=== PATIENT | male | born 1955 | race Caucasian/White ===

== ENCOUNTER → 2017-08-12 | Outpatient (CLI) | payer OTHER ==
[~2017-08-12] MED LIST: ALBUTEROL2.5 MG/31 INH; ALPRAZOLAM 0.0.25 M1 PO; ALPRAZOLAM 0.0.25 MG PO; ALPRAZOLAM 0.50.5 M1 PO; AMBIEN 10 MG TA10 MG PO; AMBIEN PO; AMITRIPTYLINE H50 M2 PO; AMITRIPTYLINE H50 M3 PO; ANDROGEL75 GM TOP; APAP650; APAP650 PO; ARICEPT 5 MG TAB5 MG PO; ASPIRIN300 MG PO; BENADRYL25 MG PO; CELEXA20 MG PO; CELEXA40 MG PO; CITALOPRAM PO; CLARITIN PO; COLACE 100 MG100 MG PO; COLACE100 MG PO; CYMBALTA30 MG PO; CYMBALTA60 MG PO; DESYREL50 MG PO; FISH OIL 1,0001 EAC5 PO; FISH OIL 1,001000 MG PO; FISHOIL PO; GLUCOPHAGE850 MG PO; HUMALOG100 UNIT/1 SC; HUMALOG100 UNIT/1 SUBQ; HUMULINR100 SUBQ; HYDROCODON-ACE1 EAC5 PO; HYDROCODONE-AP1 EAC6 PO; LANTUS SC; LANTUS SUBQ; LEVEMIR SUBQ; LEVOTHROID100 MC1 PO; LEVOTHROID125 MCG PO; LEVOTHYROXIN0.125 M1 PO; LEVOTHYROXIN0.175 MG PO; LIDODERM 5%1 PATCH TOP; LOVAZA1000 MG PO; LYRICA 75 MG CA75 MG PO; LYRICA150 MG PO; MECLIZINE HCL25 M1 PO; MOBIC15 MG PO; NASACORT NS; NEURONTIN 300M300 M2 PO; NEURONTIN600 MG PO; NORCO 10-325 T1 EACH PO; NORCO 5-325 TA1 EAC1 PO; NORVASC 5 MG TAB5 MG PO; OMEPRAZOLE PO; OMEPRAZOLE20 M2 PO; OXYBUTYNIN CHLOR5 M1 PO; OXYCODON-ACETA1 EAC1 PO; OXYCODONE HCL 55 MG PO; OXYCODONE HCL5 M1; OXYCODONE-ACET1 EAC2 PO; OXYCONTIN10 M1 PO; OXYCONTIN20 M1 PO; OXYCONTIN30 MG PO; OXYCONTIN40 MG PO; PERCOCET 10-321 EACH PO; PREDNISONE 5 MG5 M1 PO; PRILOSEC 10MG C10 MG PO; PRILOSEC PO; PRILOSEC40 MG PO; SENNA PO; SENOKOT TO GO8.6 MG PO; SENOKOT8.6 MG PO; SINGULAIR 10 MG10 M1 PO; SPIRIVA INH; SYMBICORT160 MCG/4. INH; SYNTHROID150 MCG PO; TOPAMAX 25 MG T25 M1; TOPAMAX 25 MG T25 M1 PO; TOPAMAX50 MG PO; TRAZODONE HCL50 MG PO; VENTOLIN HFA INH8 GM INH; VICODIN PO; VOLTAREN GEL 1100 G2 TOP; ZESTRIL10 MG PO; ZESTRIL40 MG PO; ZIPSOR25 MG PO; ZOCOR40 MG PO; albuterol neb INH; citalopram PO; trazodone PO; ventolin
--- NOTE | 2017-08-27 09:02 | PAINCON ---
[address] [address] PAIN MANAGEMENT CONSULTATION Name: DEBRA REHMAN Room: [facility].#: [id number] Admission: 08/12/17 Attend Phys: Michael Rodriguez DO Discharge: Date of : 53 Report #: [id number] THIS REPORT FOR: //name// CC: Say Alvares DATE OF SERVICE: 08/12/2017 REFERRING PHYSICIAN: Say Charles DO CHIEF COMPLAINT: Low back pain, bilateral lower extremity pain and paresthesias, chronic neck pain. HISTORY OF PRESENT ILLNESS: As you know, the patient is a 62-year-old male, returning in followup visit requesting refill on medications. The patient states overall medications are working fairly well. He is placing pain score approximately 7/10 despite a 70% improvement in symptoms reported with medication management. The patient comes today with increasing depression, worsening of mentation and worsening of his underlying Alzheimer's disease. He states he has also become quite emotionally labile with the changes in his memory and emotional status. Overall, the patient thinks medications are working beneficially at this time, does not require interventional treatments, he is requesting 3 months' worth of therapy to assist of pain that is exacerbated with walking, sitting, standing, climbing stairs, lifting and bending. ALLERGIES: MORPHINE and TETRACYCLINE. CURRENT MEDICATIONS: Alprazolam, Norvasc, docusate sodium, Aricept, Cymbalta, Neurontin, Levemir, Humulin, Synthroid, Antivert, oxycodone, Senokot, simvastatin, and trazodone. SOCIAL HISTORY: The patient denies tobacco, alcohol, IV or illicit drug use. He is retired, retired years ago, unaccompanied today. IMAGING: No new imaging available. PHYSICAL EXAMINATION: VITAL SIGNS: Blood pressure 175/78, pulse is 114, respiratory rate 18, 98% on room air, current temperature 97.9 degrees Fahrenheit, height 5 feet 9 inches tall, and weight 270 pounds. GENERAL: Well-developed, well-nourished, well-hydrated, morbidly obese 62-year-old male, appearing his stated age, he is placing pain score today 7/10. HEENT: Normocephalic, atraumatic. Pupils are equal, round, and reactive to light. Extraocular muscles are intact. Sclerae [place]ter[place] [address] PAIN MANAGEMENT CONSULTATION Name: DEBRA REHMAN Room: [facility]#: [id number] Admission: 08/12/17 Attend Phys: Michael Rodriguez DO Discharge: Date of : 53 Report #: [id number] Affect is flat. EXTREMITIES: Show no clubbing, no cyanosis, and no edema. MUSCULOSKELETAL: Lower extremity strength is 5/5, intact to light touch from L1 through S2 dermatomes. Seated straight leg raising negative. Supine straight leg raising positive. David's test negative. Modified Gaenslen's positive for axial back pain. Ankle clonus negative. Babinski is negative. ASSESSMENT: 1. Symptomatic lumbar radiculopathy. 2. Displacement of lumbar intervertebral disk with radiculopathy. 3. Lumbosacral spondylosis with radiculopathy. 4. Lumbar degeneration. 5. Chronic intractable pain. PLAN: 1. The patient returns today in followup visit requesting refill on medications. The patient indicates worsening of his underlying Alzheimer's disease process. He states that he is experiencing increasing emotional lability. Unfortunately, the Alzheimer disease processes, the patients tend to become depressed over their loss of memory and this leads to increasing lability. I recommend the patient to follow up with PCP in regards to treatment including the possibility of referral to neurology for assistance from their standpoint. 2. The patient's blood pressure is noted to be quite elevated today 175/78, previous blood pressure 155/73. The patient needs to return to his PCP for adjustments in his antihypertensives. I do not feel that this is a pain related issue as the patient's diastolic pressure is not highly elevated, this appears to be only a systolic dysfunction problem and needs to be treated medically. 3. We have provided refill on the patient's Percocet 10/ one tab p.o. q.5 hours p.r.n. for pain, #120, release dates of today, 4 weeks from today, 8 weeks from today, 3 months' worth of medication. He appears to be doing well with medication, denying any side effects, we will continue the therapy at current dosing. 4. The patient was provided a prescription of duloxetine 30 mg dose 1 tab p.o. q.8 hours, given the patient #90 tablets to take consistently, he will continue this therapy. 5. The patient was provided a prescription of gabapentin 600 mg tablets 2 tabs p.o. t.i.d., #180, 2 refills. We did discuss the possibility of this medication could be contributing to the patient's memory issues, though his memory issues have progressively worsened without the changes in the therapy, he feels this is more related to his underlying Alzheimer's. We can continue to provide this medication assuming neurology does not feel it is contributing to symptom worsening. We will defer to neurology in regards to alterations in this therapy. [facility] [address] [place] [address] PAIN MANAGEMENT CONSULTATION Name: DEBRA REHMAN [id number] Admission: 08/12/17 Attend Phys: Michael Rodriguez DO Discharge: Date of : 53 Report #: [id number] 6. We will see the patient back in followup visit in 3 months for medication therapy. <ELECTRONICALLY SIGNED> By: Michael Rodriguez DO 08/27/17 0902 [id number] Rodriguez DO /nt
== END ==
LOC: M.PC 00:56
DX: M51.16 Intervertebral disc disorders with radiculopathy, lumbar region (principal); M47.27 Other spondylosis with radiculopathy, lumbosacral region; R20.2 Paresthesia of skin; M54.2 Cervicalgia; G89.29 Other chronic pain

== ENCOUNTER → 2017-11-12 | Outpatient (CLI) | payer OTHER ==
[~2017-11-12] MED LIST changes: +ALPRAZOLAM1 MG PO; +ANTIVERT25 MG PO; +CALCIUM 600 +1 EAC1 PO; +FLOMAX0.4 MG PO; +OMEPRAZOLE40 MG PO; +ORPHENADRINE C100 M2 PO; +VITAMIN B-12500 MCG PO; +ZANAFLEX4 MG PO
--- NOTE | 2017-11-13 15:40 | PAINCON ---
[address] [address] PAIN MANAGEMENT CONSULTATION Name: DEBRA REHMAN Room: [facility] Mau#: [id number] Admission: 11/12/17 Attend Phys: Felisha Natarajan MD Discharge: Date of : 53 Report #: [id number] THIS REPORT FOR: //name// CC: Say Collins DATE OF SERVICE: 11/12/2017 FOLLOWUP COMPLAINT: "I need to get a cervical epidural injection. I have concentrated too long on my lower back." FOLLOWUP HISTORY: The patient is a 62-year-old gentleman who has been followed in the pain clinic by Dr. Michael Rodriguez. This is my first visit with him. He has a history of cervical radiculopathy as well as lumbar radiculopathy. He has been treated for lumbar radiculopathy and feels that things are going reasonably well. He has noted some pain and discomfort in the cervical area with pain radiating down into his neck and shoulders. He has had cervical radicular surgery in the past. He has had an anterior approach on the right side. States that his pain is now returning to that which he had experienced in the past. Feels overall that the lower back pain is better, but the upper extremity is more problematic. He also feels that the gabapentin, which he has been taking 600 mg 2 tablets t.i.d. has not been very efficacious. He stopped taking this medication a couple of weeks ago. He would like to try Lyrica. States that his insurance will now cover this. He found it too expensive prior to this juncture in life. The patient states that he will see a surgeon in the near future. He has had 3 falls since his last visit. As you may recall, he suffers from dementia. He feels that it may be getting a bit worse. He is considering seeing another neurologist. Finds that Cymbalta continues to be helpful and would like to have this medication renewed. ALLERGIES: MORPHINE, TETRACYCLINE, ADHESIVE TAPE. MEDICATIONS: Alprazolam 0.25 mg b.i.d., Norvasc 5 mg, Colace 100 mg b.i.d., Aricept 5 mg 2 tablets daily, Cymbalta 30 mg t.i.d., Neurontin 1200 mg t.i.d., insulin 20 units subq at bedtime, Synthroid 0.175 mg daily, Antivert, motion sickness t.i.d. 25 mg, oxycodone 10/325 q.i.d., Senokot 8.6 mg tablets for constipation b.i.d., simvastatin 40 mg, trazodone 50 mg at bedtime. PAST MEDICAL AND SURGICAL HISTORY: Cervical radiculopathy, lumbar radiculopathy, fibromyalgia, cervical spondylosis without myelopathy, headaches, diabetes type 2, GERD, hypertension, insomnia, degenerative arthritis, uvuloplasty, microdiskectomy of the cervical spine, left and right rotator cuff repair, left and right elbow repair, right carpal tunnel release, cholecystectomy, left herniorrhaphy, left knee arthroscopy, right knee arthroscopy, left total knee replacement, renal dysfunction, [place] [address] PAIN MANAGEMENT CONSULTATION Name: DEBRA REHMAN [facility] [id number] Admission: 11/12/17 Attend Phys: Felisha Natarajan MD Discharge: Date of : 53 Report #: [id number] surgery 05/18/2017. SOCIAL HISTORY: He was a marketing communications manager. He is . He is a retired police officer booking. Denies use of tobacco, alcohol or illicit drugs. LABORATORY DATA: Medical records, no new medical/lab available at the time of our interview. X-ray hip view of the pelvis, bilateral dated 10/14/2017, SI joint pain, acute bilateral low back pain with sciatica prominent unspecified. No x-rays for comparison. There is no evidence of acute fracture or malalignment. Mild osteoarthritis in the hip joint and SI joints. Miscellaneous arterial calcification in the pelvis and proximal thigh. X-ray of lumbar spine 10/14/2017, multilevel spondylosis. Grade 1 retrolisthesis of L3/L4 is likely degenerative. No abnormal motion between flexion and extension. Next, chronic L1 compression deformity status post kyphoplasty. FINDINGS: Five [id number] lumbar type vertebral bodies present. The bones, there is a chronic L1 compression fracture status post kyphoplasty. There are no acute compression fractures. Grade 1 retrolisthesis L3 on L4 is likely degenerative. Atherosclerotic calcification of the aorta and iliac arteries. PAIN CLINIC ASSESSMENT: 1. History of osteoarthritis with retrolisthesis of L1 and history of compression fracture at L1. 2. Height 5 feet 9 inches. Weight 279 pounds, BMI is 40. 3. VITAL SIGNS: Blood pressure 151/73, heart rate 112, respiratory rate 16, room air saturation 95%, temperature 98.2. 4. Pain intensity 7/10 with pain in the upper neck area with pain radiating down to the arms, shoulder areas. 5. Fall risk. The patient states he has not fallen in the last 3 months. Does have some dizziness and vertigo, does need some help standing and walking. 6. Blood thinner. The patient is not on a blood thinner. 7. History of hypertension. The patient is being treated for hypertension. 8. Opioid greater than 6 weeks. The patient is on an opioid contract with the pain clinic. 9. Risk assessment tool. 10. Functional assessment tool. 11. Recreational drug use. The patient denies recreational drug use. 12. Tobacco: The patient denies use of tobacco at this juncture. 13. Alcohol. Denies frequent use of alcoholic beverages. PHYSICAL EXAMINATION: GENERAL: The patient is a somewhat obese white male who appears his stated age. Orientation: The patient is alert and oriented x 3. Affect is appropriate, questions were appropriate. Speech is normal. HEENT: Normocephalic, atraumatic. Extraocular eye [place] [address] PAIN MANAGEMENT CONSULTATION Name: ORIDEBRA Room: [facility]#: [id number] Admission: 11/12/17 Attend Phys: Felisha Natarajan MD Discharge: Date of : 53 Report #: [id number] noninjected. Hearing within normal limits. Mucous membranes moist. NECK: Well-healed scar in the right lower neck area. Flexion, extension, left and right lateral rotation, cervical extension and flexion were performed. The patient does note some increased pain and discomfort with pain radiating down into his arm and into the shoulder areas. States that this was similar to what he had been experiencing prior to cervical disk surgery in the neck, some years ago. HEART: Regular rate. ABDOMEN: Protuberant. CHEST: Clear to auscultation without rhonchi or rales. MUSCULOSKELETAL: Without significant scoliosis, kyphosis or lordosis. Upper extremity muscle strength is judged to be 5/5 for the major muscle groups in the upper extremity. The patient complains of pain and discomfort, which radiates down into the deltoid area and forearm of his arm. Lower extremity muscle strength is judged to be 5/5 for the major muscle groups. Light touch in the lower dermatomal areas within normal limits. Muscle bulk is symmetrical. SITA test is negative. Gaenslen's test is positive for axial back pain. Ankle clonus is negative. IMPRESSION: 1. Exacerbation of cervical radiculopathy with pain similar to that which he experienced prior to cervical disk surgery some years ago. 2. Headache. 3. Diabetes type 2. 4. Gastroesophageal reflux disease. 5. Hypertension. 6. Insomnia. 7. Degenerative arthritis. 8. History of lumbar radiculopathy. RECOMMENDATIONS: We discussed treatment options with the patient. Risks and benefits of a cervical epidural steroid injection were discussed. The patient states that he has had numerous injections in the past and gleaned greater than 50% improvement with this. He has had some pain with his back, which has improved with the lumbar epidural steroid injections. He feels that the Lyrica 75 mg b.i.d. was more effective than the gabapentin. The patient stated about 2 weeks ago he stopped taking the gabapentin. He had no seizure activity or no problems with that. At this juncture, he states his insurance has been reestablished and he would be able to afford Lyrica and would like to start this medication again. He would like to continue with the oxycodone. Takes one tablet p.o. q. 4 hours to help with his pain control. He also would like to continue with the Cymbalta. He would like to have this medication renewed. RECOMMENDATIONS: We discussed treatment options with the patient. Risks and benefits of a cervical epidural steroid injection were discussed. They include, but are not limited to infection, increased muscle soreness, headache, bleeding, [facility] [address] [place] [address] PAIN MANAGEMENT CONSULTATION Name: DEBRA REHMAN Room: [facility]#: [id number] Admission: 11/12/17 Attend Phys: Felisha Natarajan MD Discharge: Date of : 53 Report #: [id number] worsening of pain, no improvement in pain and the patient elects to proceed. PROCEDURE NOTE: The patient was taken to the procedure area. He was assisted in getting on the table. He was in the prone position. His neck and back was sterilely prepped with a Betadine solution. This area was then infiltrated with 0.25% bupivacaine. Fluoroscopy was used to identify the C7-T1 interspace. This area was then infiltrated with 0.25% bupivacaine. Total of 80 mg of Depo-Medrol, 40 mg of triamcinolone and 2 mL of 0.25% bupivacaine was injected. The patient tolerated the procedure well. There were no complications. He remained in the pain clinic for an appropriate amount of time. He will follow up in the future as needed. Total of 43 seconds fluoroscopy time was used. We would like to thank you for letting us participate in his care. We hope he continues to improve. <ELECTRONICALLY SIGNED> By: Felisha Natarajan MD 11/13/17 1540 [id number]. Kit Natarajan MD /PMT
== END | disposition home or self-care (01) ==
LOC: M.PC 11-05 10:00
DX: M54.12 Radiculopathy, cervical region (principal); E11.9 Type 2 diabetes mellitus without complications; K21.9 Gastro-esophageal reflux disease without esophagitis; I10 Essential (primary) hypertension; M19.90 Unspecified osteoarthritis, unspecified site; M54.16 Radiculopathy, lumbar region; Z98.890 Other specified postprocedural states; Z68.41 Body mass index [BMI] 40.0-44.9, adult; F11.20 Opioid dependence, uncomplicated

== ENCOUNTER 2017-12-14 17:13 | Emergency (ER) | payer OTHER ==
[~2017-12-14] VITALS: Ht 175.3 cm; Wt 122.5 kg
[~2017-12-14 17:13] MED LIST changes: -ALPRAZOLAM1 MG PO; -ANTIVERT25 MG PO; -ASPIRIN300 MG PO; -CALCIUM 600 +1 EAC1 PO; -FLOMAX0.4 MG PO; -HYDROCODONE-AP1 EAC6 PO; -OMEPRAZOLE40 MG PO; -ORPHENADRINE C100 M2 PO; -VITAMIN B-12500 MCG PO; -VOLTAREN GEL 1100 G2 TOP; -ZANAFLEX4 MG PO
[2017-12-14] MEDS ORDERED: ASPIRIN300 MG PO (17:30)
[2017-12-14] MEDS ORDERED: VOLTAREN GEL 1100 G2 TOP (18:31)
[2017-12-14] MEDS ORDERED: HYDROCODONE-AP1 EAC6 PO (18:31)
[2017-12-14 18:49] VITALS: BP 143/81
[2018-02-04] MEDS ORDERED: VOLTAREN GEL 1100 G2 TOP (08:39)
[2018-02-04] MEDS ORDERED: PERCOCET 10-321 EACH PO (08:39)
[2018-02-04] MEDS ORDERED: HYDROCODONE-AP1 EAC6 PO (08:39)
[2018-02-04] MEDS ORDERED: CYMBALTA30 MG PO (08:39)
[2018-02-04] MEDS ORDERED: LYRICA 75 MG CA75 MG PO (08:39)
[2018-02-04] MEDS ORDERED: OXYCODONE-ACET1 EAC2 PO (08:39)
[2018-02-04] MEDS ORDERED: OXYCONTIN20 M1 PO (09:45)
[2018-02-04] MEDS ORDERED: NEURONTIN600 MG PO (09:48)
[2018-06-24] MEDS ORDERED: PERCOCET 10-321 EACH PO ×2 (08:14→08:32)
[2018-06-24] MEDS ORDERED: NEURONTIN600 MG PO ×2 (08:14→08:32)
[2018-06-24] MEDS ORDERED: OXYCODONE-ACET1 EAC2 PO ×2 (08:14→08:32)
[2018-06-24] MEDS ORDERED: LYRICA 75 MG CA75 MG PO ×2 (08:14→08:32)
[2018-06-24] MEDS ORDERED: VOLTAREN GEL 1100 G2 TOP ×2 (08:14→08:32)
[2018-06-24] MEDS ORDERED: OXYCONTIN20 M1 PO ×2 (08:14→08:32)
[2018-06-24] MEDS ORDERED: CYMBALTA30 MG PO ×2 (08:14→08:32)
[2018-06-24] MEDS ORDERED: ZANAFLEX4 MG PO (09:47)
[2018-06-24] MEDS ORDERED: ORPHENADRINE C100 M2 PO (09:48)
[2018-06-24] MEDS ORDERED: ALPRAZOLAM1 MG PO (09:48)
[2018-06-24] MEDS ORDERED: ANTIVERT25 MG PO (09:49)
[2018-06-24] MEDS ORDERED: OMEPRAZOLE40 MG PO (09:49)
[2018-06-24] MEDS ORDERED: FLOMAX0.4 MG PO (09:50)
[2018-06-24] MEDS ORDERED: VITAMIN B-12500 MCG PO (09:50)
[2018-06-24] MEDS ORDERED: CALCIUM 600 +1 EAC1 PO (09:51)
== END 2017-12-14 18:50 | disposition home or self-care (01) ==
LOC: M.ERS 17:13
DX: S22.41XA Multiple fractures of ribs, right side, initial encounter for closed fracture (principal); K21.9 Gastro-esophageal reflux disease without esophagitis; G47.30 Sleep apnea, unspecified; E11.22 Type 2 diabetes mellitus with diabetic chronic kidney disease; N18.3 Chronic kidney disease, stage 3 (moderate); M79.7 Fibromyalgia; Z90.49 Acquired absence of other specified parts of digestive tract; Z79.4 Long term (current) use of insulin; Z88.6 Allergy status to analgesic agent; Z88.8 Allergy status to other drugs, medicaments and biological substances; W18.39XA Other fall on same level, initial encounter; Y93.89 Activity, other specified; Y92.89 Other specified places as the place of occurrence of the external cause; Y99.8 Other external cause status

== ENCOUNTER → 2018-02-04 | Outpatient (CLI) | payer OTHER ==
[~2018-02-04] MED LIST changes: +ALPRAZOLAM1 MG PO; +ANTIVERT25 MG PO; +ASPIRIN300 MG PO; +CALCIUM 600 +1 EAC1 PO; +FLOMAX0.4 MG PO; +HYDROCODONE-AP1 EAC6 PO; +OMEPRAZOLE40 MG PO; +ORPHENADRINE C100 M2 PO; +VITAMIN B-12500 MCG PO; +VOLTAREN GEL 1100 G2 TOP; +ZANAFLEX4 MG PO
--- NOTE | 2018-03-05 14:16 | PAINCON ---
[facility] [address] [place] [address] PAIN MANAGEMENT CONSULTATION Name: DEBRA REHMAN Room: [facility] Mau#: [id number] Admission: 02/04/18 Attend Phys: Felisha Natarajan MD Discharge: Date of : 53 Report #: [id number] THIS REPORT FOR: //name// CC: Say Natarajan DATE OF SERVICE: 03/03/2018 FOLLOWUP COMPLAINT: Low back, neck and upper back pain. FOLLOWUP HISTORY: The patient is a 63-year-old gentleman who has been seen in the pain clinic because of cervical radiculopathy. He also has lumbar radiculopathy. He has been treated these areas with injections. Notes that the pain radiates down from his neck into his shoulders. He has undergone cervical intervention in the past. He has noticed some return of pain and discomfort, which was noted prior to the anterior cervical fusion. He feels that his medications continue to be helpful. They include gabapentin and Lyrica. As you may recall, he suffers somewhat from dementia. He has a history of falls. He states that he fell a couple of times since we saw him in his last visit. He is considering seeing a neurologist in regards to his possible Alzheimer's. I would like to proceed with a cervical epidural steroid injection today given that his pain is worsened. ALLERGIES: MORPHINE, TETRACYCLINE, ADHESIVE TAPE. MEDICATIONS: Alprazolam 0.25 mg b.i.d., Norvasc 5 mg, Colace 100 mg b.i.d., Aricept 5 mg 2 tablets daily, Cymbalta 30 mg t.i.d., Neurontin 1200 mg t.i.d., insulin 20 units subq at bedtime, Synthroid 0.175 mg daily, Antivert for motion sickness t.i.d. 25 mg, oxycodone 10/325 one p.o. q.i.d., Senokot 8.6 mg tablets for constipation b.i.d., simvastatin 40 mg, trazodone 50 mg at bedtime. PAIN CLINIC ASSESSMENT: 1. History of osteoarthritis and retrolisthesis of L1 and history of compression fractures L2, history of surgery in the cervical area. 2. Height 5 feet 9 inches, weight 285 pounds, BMI 40. 3. VITAL SIGNS: Blood pressure 132/55, heart rate 98, respiratory rate 18, room air saturation is 93%, temperature 97.9. 42. Pain intensity 8/10. 4. Fall risk. The patient has fallen a couple of times since we saw him last. He states that he is using a walker. 5. Blood thinner. The patient is not on a blood thinning medication. 6. Hypertension. The patient is being treated for hypertension. 7. Opioid greater than 6 weeks. The patient is on an opioid contract with the pain clinic. 8. Risk assessment tool. 9. Functional [place] [address] PAIN MANAGEMENT CONSULTATION Name: DEBRA REHMAN Room: [facility]#: [id number] Admission: 02/04/18 Attend Phys: Felisha Natarajan MD Discharge: Date of : 53 Report #: [id number] 10. Recreational drug use. The patient denies use of recreational drugs. 11. Tobacco: The patient denies use of tobacco at this juncture. 12. Alcohol: The patient denies frequent use of alcoholic beverages. PHYSICAL EXAMINATION: GENERAL: The patient is well developed, somewhat obese white male, appears his stated age. He is alert and oriented x 3, today. His affect is appropriate. Questions were appropriate. His speech is normal. HEENT: Normocephalic, atraumatic. Extraocular eye muscles intact. Sclerae not injected. Hearing is within normal limits. Mucous membranes are moist. Neck is somewhat limited motion. He has a well-healed scar in the right lower neck area. Flexion and extension, left and right lateral bending, left and right lateral rotation were performed. The patient does note some increased pain and discomfort with pain radiating down into his arm and into the shoulder areas. The patient notes this pain is similar to that he experienced 6 years ago for his surgery. HEART: Regular rate. ABDOMEN: Nontender Protuberant. CHEST: Clear to auscultation without rhonchi or rales. MUSCULOSKELETAL: Without scoliosis, kyphosis or lordosis. Upper extremities muscle strength is judged to be 5/5 for the major muscle groups. The patient does have some pain and discomfort that radiates down into his deltoids into the forearm. Lower extremity muscle strength is judged to be 5/5. Muscle bulk is symmetrical. IMPRESSION: 1. Exacerbation of cervical radiculopathy with pain similar to that which he has experienced of the pain in the past prior to surgical intervention. 2. Headaches. 3. Diabetes type 2. 4. Gastroesophageal reflux. 5. Hypertension. 6. Insomnia. 7. Degenerative arthritis. 8. History of lumbar radiculopathy. RECOMMENDATIONS: We discussed the treatment options with the patient. Risks and benefits of a cervical epidural steroid injection were again reviewed. Possible complications of the procedure were discussed. We will have the patient continue with his current medical regimen. We will proceed with a cervical epidural steroid injection with the hopes of improving his pain. Risks and benefits of the procedure, which could include but are not limited to infection, worsening of pain, no improvement in pain, spinal headache, and nerve trauma/paralysis were explained and the patient elects to proceed. PROCEDURE NOTE: The patient was placed in the prone position. Fluoroscopy was [facility] [address] [place] [address] PAIN MANAGEMENT CONSULTATION Name: DEBRA REHMAN Room: [facility]#: [id number] Admission: 02/04/18 Attend Phys: Felisha Natarajan MD Discharge: Date of : 53 Report #: [id number] then used to identify the SI C7/T1 interspace. This area had been sterilely prepped with Betadine and infiltrated with 0.25% bupivacaine. Fluoroscopy using anterior, posterior as well as a lateral approach were used to locate the appropriate placement of the injection. The C7/T1 interspace had been sterilely prepped. A 0.25% bupivacaine was injected. A midline approach was followed. After appropriate placement, a total of 120 mg triamcinolone was injected. The patient tolerated the procedure well. There were no complications. He remained in the pain clinic for an appropriate amount of time. He will follow up in the future as needed. We would like to thank you for letting us participate in his care. A script for his medications, Cymbalta, gabapentin, oxycodone, tizanidine were then provided. The patient was taken to the recovery room where he remained for an appropriate amount of time. There were no complications. He will follow up in the future as needed. We would like to thank you for letting us participate in his care. We hope he continues to improve. <ELECTRONICALLY SIGNED> By: Felisha Natarajan MD 03/05/18 1416 [id number]. Kit Natarajan MD /nt
== END ==
LOC: M.PC 05:29
DX: M54.12 Radiculopathy, cervical region (principal); I10 Essential (primary) hypertension; E11.9 Type 2 diabetes mellitus without complications; K21.9 Gastro-esophageal reflux disease without esophagitis; G47.00 Insomnia, unspecified; R51 Headache

== ENCOUNTER → 2018-06-24 | Outpatient (CLI) | payer OTHER ==
--- NOTE | ~2018-06-24 | PAINCON ---
[facility] [address] [place] [address] PAIN MANAGEMENT CONSULTATION Name: DEBRA REHMAN Room: [facility] Mau#: [id number] Admission: 06/24/18 Attend Phys: Felisha Natarajan MD Discharge: Date of : 53 Report #: [id number] THIS REPORT FOR: //name// CC: Say Natarajan DATE OF SERVICE: 06/24/2018 Here for medication renewal. The patient is a 63-year-old gentleman who has been followed in the pain clinic because of cervical radiculopathy. He has also had some problem with lumbar radiculopathy. He has been treated for this with injection in the past. He continued to have pain and discomfort in his neck and his shoulders. He has undergone cervical interventions in the past. He returns today indicating that he has undergone a lumbar laminectomy and fusion on 04/30/2020. He is being treated with a bone growth stimulator. He feels that his surgery has been helpful. Has some generalized joint discomfort. The weather has changed outside and it is 28 degrees. Notes that his walking is better. He is not using a walker. Rates his pain as a 6/10. Would like to get in his hot tub, but his doctors reminded him not to until he has been cleared. ALLERGIES: MORPHINE, TETRACYCLINE, ADHESIVE TAPE. MEDICATIONS: Alprazolam 0.25 mg b.i.d., Norvasc 5 mg, Colace 100 mg b.i.d., Aricept 5 mg 2 tablets daily, Cymbalta 30 mg t.i.d., Neurontin 1200 mg t.i.d., insulin 20 units subcutaneous at bedtime, Synthroid 0.175 mg daily, Antivert for motion sickness t.i.d. 25 mg, oxycodone 10/325 one p.o. q.i.d., Senokot 8 mg tablets for constipation b.i.d., simvastatin 40 mg, trazodone 50 mg at bedtime. PAIN CLINIC ASSESSMENT/PQRS: 1. History of osteoarthritis and retrolisthesis of L1 and history of compression fractures L2, history of surgery in the cervical area. The patient has not been treated for rheumatoid arthritis. 2. Height 5 feet 10 inches, weight 277 pounds, BMI is 40, vital signs are 158/69, heart rate 92, respiratory rate 16, room air saturation 95%, temperature 98.3. 3. Fall history: Pain intensity 01/12. 4. Blood thinner. The patient is not on a blood thinning medication. 5. Hypertension. The patient is being treated with hypertensive agent for his renal condition. Opioids greater than 6 weeks. The patient is receiving his medication from one source, the Pain Clinic. 6. Risk assessment tool, low for opioid use. 7. Functional assessment tool. 8. Recreational drug use. The patient denies use of recreational drugs. 9. Tobacco: The [place] [address] PAIN MANAGEMENT CONSULTATION Name: DEBRA REHMAN Room: [facility]#: [id number] Admission: 06/24/18 Attend Phys: Felisha Natarajan MD Discharge: Date of : 53 Report #: [id number] PHYSICAL EXAMINATION: GENERAL: The patient is a well-developed, somewhat obese white male, appears his stated age. He is alert and oriented x 3. His affect is appropriate. Speech is fluent. HEENT: Normocephalic, atraumatic. Extraocular eye muscles intact. The patient has a slight disconjugate gaze to his eyes. HEART: Regular rate. ABDOMEN: Protuberant. LUNGS: Clear to auscultation, low back with a healing scar in the lumbar area. Upper extremity muscle strength is judged to be for 5-/5 for the upper extremity muscles and -5/5 for the lower extremity muscles. The patient has had some pain and discomfort, which involves his shoulders pain that radiates down into his deltoids involving his forearms. IMPRESSION: 1. Lumbar radiculopathy, improved since lumbar laminectomy and fusion 04/30/2018. 2. Headaches. 3. Diabetes type 2. 4. Gastroesophageal reflux. 5. Hypertension. 6. Insomnia. 7. Degenerative arthritis. 8. History of lumbar radiculopathy status post surgery. RECOMMENDATION: We will continue with the patient's opioid medications. A script for his medications of oxycodone and medications of gabapentin having been rewritten. The patient will continue to take his medication for the next 3 months. He will call us if he needs it. A script for Voltaren gel has also been written for his upper extremities. He will continue with Cymbalta. We would like to thank you for letting us participate in his care. We hope he continues to improve. By: [id number]. Kit Nataarjan MD /vito
== END ==
LOC: M.PC 04-29 09:00
DX: M54.16 Radiculopathy, lumbar region (principal); R51 Headache; E11.9 Type 2 diabetes mellitus without complications; K21.9 Gastro-esophageal reflux disease without esophagitis; I10 Essential (primary) hypertension; M19.90 Unspecified osteoarthritis, unspecified site; G47.00 Insomnia, unspecified

== ENCOUNTER → 2018-09-18 | Outpatient (CLI) | payer OTHER ==
[~2018-09-18] MED LIST changes: +ATIVAN1 MG PO; +MIRALAX17 GM PO; +[UNRECOGNIZED DRUG - OTHER] SUBQ
--- NOTE | 2018-09-23 09:15 | PAINCON ---
[address] [address] PAIN MANAGEMENT CONSULTATION Name: DEBRA REHMAN Room: [facility] JessCrystal#: [id number] Admission: 09/18/18 Attend Phys: Felisha Natarajan MD Discharge: Date of : 53 Report #: [id number] THIS REPORT FOR: //name// CC: Say Natarajan DATE OF SERVICE: 09/18/2018 CHIEF COMPLAINT: Here for medication renewal and low back, neck, and joint pain. FOLLOWUP HISTORY: The patient is a 63-year-old gentleman who has been followed in the Pain Clinic. He has a history of cervical radiculopathy. Also, he has had some problems with his low back. He complains today of some generalized joint pain. He does have a bone growth stimulator in his low back area. He has pain that radiates down in his buttocks and into his legs, right side is most problematic. He has some problems with Alzheimer. He has noted some blood sugar issues. He feels that Cymbalta, oxycodone, and gabapentin continue to be helpful with his pain. He has undergone epidural steroid injections in the past. As you may recall, he underwent lumbar laminectomy and fusion on 04/30/2018. He has noticed that the severe weather fluctuations that we have been experiencing have been problematic. He continues to find his medications beneficial and would like to have them renewed. ALLERGIES: MORPHINE, TETRACYCLINE, ADHESIVE TAPE. MEDICATIONS: Alprazolam 0.25 mg b.i.d., Norvasc 5 mg, Colace 100 mg b.i.d., Aricept 5 mg 2 tablets daily, Cymbalta 30 mg t.i.d., Neurontin 1200 mg t.i.d., insulin 20 units subcutaneous at bedtime, Synthroid 0.175 mg daily, Antivert for motion sickness 25 mg t.i.d., oxycodone 10/325 one p.o. q.i.d., Senokot 8 mg for constipation b.i.d., simvastatin 40 mg, and trazodone 50 mg at bedtime. PAIN CLINIC ASSESSMENT AND PQRS: 1. History of osteoarthritis with retrolisthesis of L1 and history of compression fracture at L2. He has had cervical surgery as well as some lumbar surgery. The patient is not being treated for rheumatoid arthritis. 2. Height 5 feet 9 inches, weight 278 pounds, BMI is 41. 3. Vital signs: Blood pressure 148/87, heart rate 102, respiratory rate 16, room air saturation 94%, temperature 97.6. 4. Pain intensity: 4/10. 5. Fall history: The patient has not fallen since we saw him last. 6. Blood thinner: The patient is not on a blood thinning medication. 7. Hypertension: The patient is being treated for hypertension. 8. He has stage 2 renal failure, has had this twice. 9. Opioid therapy greater than 6 weeks: The patient receives his medications from [place] [address] PAIN MANAGEMENT CONSULTATION Name: DEBRA REHMAN Room: [facility]#: [id number] Admission: 09/18/18 Attend Phys: Felisha Natarajan MD Discharge: Date of : 53 Report #: [id number] 10. Risk assessment tool: Low for opioid use. 11. Functional assessment tool. 12. Recreational drug use: The patient denies use of recreational drugs. 13. Tobacco: The patient denies use of tobacco. 14. Alcohol: The patient denies use of alcoholic beverages. PHYSICAL EXAMINATION: GENERAL: The patient is a well-developed, well-nourished, somewhat obese white male. He appears his stated age. He is alert and oriented x 3. His affect is appropriate. Speech is fluent. His is present. HEENT: Normocephalic, atraumatic. Extraocular eye muscles intact. Sclerae nonicteric. Mucous membranes are moist. HEART: Regular rate. ABDOMEN: Protuberant. Bowel sounds present. LUNGS: Clear to auscultation without rhonchi or rales. MUSCULOSKELETAL: Well-healing scar on the lumbar area. Upper extremity muscle strength is judged to be 5-/5 for the upper extremity and 5-/5 for the lower extremities. The patient wears a bone stimulator, wears it about 30 minutes daily. He has some pain in the deltoid area with radiation down into his forearms. IMPRESSION: 1. History of lumbar radiculopathy, status post back surgery on 04/30/2018. 2. Headache. 3. Diabetes type 2. 4. Gastroesophageal reflux. 5. Hypertension. 6. Insomnia. 7. Degenerative arthritis. 8. History of lumbar radiculopathy, status-post surgery recently. RECOMMENDATIONS: We discussed treatment options with the patient. At this juncture, he feels his medications are helpful. He would like to have them renewed. He thinks he has taken the medication as prescribed. He feels that these medications are helpful, as he continues to recuperate from his back surgery. The patient will continue with use of Cymbalta, oxycodone, and gabapentin. He will call us if he has any concerns. He will keep his medications in a guarded area. We discussed the problems with opioids, which could be development of dependence as well as lack of benefit secondary to development of tolerance. A script for [place] [address] PAIN MANAGEMENT CONSULTATION Name: DEBRA REHMAN Yair Room: [facility]#: [id number] Admission: 09/18/18 Attend Phys: Felisha Natarajan MD Discharge: Date of : 53 Report #: [id number] We would like to thank you for letting us participate in his care. We hope he continues to improve. <ELECTRONICALLY SIGNED> By: Felisha Natarajan MD 09/23/18 0915 2131 [id number]. Kit Natarajan MD /nt
== END ==
LOC: M.PC 12:19
DX: M47.26 Other spondylosis with radiculopathy, lumbar region (principal); E11.9 Type 2 diabetes mellitus without complications; K21.9 Gastro-esophageal reflux disease without esophagitis; I10 Essential (primary) hypertension; R51 Headache; G47.00 Insomnia, unspecified

== ENCOUNTER → 2018-12-11 | Outpatient (CLI) | payer OTHER ==
[~2018-12-11] MED LIST changes: +AZITHROMYCIN 2250 MG PO; +CEFUROXIME250 MG PO; +FLEXERIL PO; +HUMULIN R100 UNIT/M SUBQ; +MUCINEX1200 MG PO; +MUCINEX600 MG PO; +NABUMETONE PO; +SIMVASTATIN40 MG PO; +VERAPAMIL ER120 MG PO; +XANAX 0.5 MG0.5 MG PO
--- NOTE | 2019-01-01 01:32 | PAINCON ---
[address] [address] PAIN MANAGEMENT CONSULTATION Name: DEBRA REHMAN [id number] Admission: 12/11/18 Attend Phys: Felisha Natarajan MD Discharge: Date of : 53 Report #: [id number] THIS REPORT FOR: //name// CC: Say Natarajan DATE OF SERVICE: 12/11/2018 CHIEF COMPLAINT: Low back pain that is radiating down into the legs, would like to have an injection today. HISTORY OF PRESENT ILLNESS: The patient is a 63-year-old gentleman who has been seen in the pain clinic, suffers from chronic pain. He has had pain in the cervical area as well as in the lumbar area. Today, he returns indicating that he is having more pain in the low back area. As you may recall, he has had back surgery. He is experiencing pain that is radiating down into his legs, left and right. He has had injections in the past, which have been helpful. He has returned today for an epidural steroid injection with the hope that his pain would improve. Continues to find oxycodone, gabapentin, and Cymbalta beneficial. Overall, he has about 50% improved with use of his medications. He has noticed that cold temperatures exacerbate his discomfort. Activity causes some worsening of pain. He notes that his medications are helpful as well as sometimes use of heat. ALLERGIES: MORPHINE, TETRACYCLINE, AND ADHESIVE TAPE. CURRENT MEDICATIONS: Alprazolam 0.25 mg b.i.d., Norvasc 5 mg, Colace 100 mg b.i.d., Aricept 5 mg 2 tablets daily, Cymbalta 30 mg t.i.d., Neurontin 1200 mg t.i.d., insulin 20 mg subcutaneous at bedtime, Synthroid 0.175 mg daily, Antivert for motion sickness 25 mg t.i.d., oxycodone 10/325 one p.o. q.i.d., Senokot for constipation b.i.d., simvastatin 40 mg, and trazodone 50 mg at bedtime. PAIN CLINIC ASSESSMENT/PQRS: 1. The patient has some history of osteoarthritic changes in his low back with some retrolisthesis of L1 and a history of compression fracture at L2-L3. Has a history of cervical surgery. The patient is not being treated for rheumatoid arthritis. 2. Height 5 feet 9 inches, weight 282 pounds, BMI is 40.8. 3. Vital signs: Blood pressure 150/73, heart rate 104, respiratory rate 16, room air saturation is 94%, temperature 97.9. Pain intensity 8/10. 4. Fall history: The patient has not fallen in the last 3 months. 5. Blood thinner. The patient is not on a blood thinning medication. 6. Hypertension. The patient is being treated for hypertension. 7. Opioids greater than 6 weeks. The patient receives medication from one source, [place] [address] PAIN MANAGEMENT CONSULTATION Name: DEBRA REHMAN Room: [facility]#: [id number] Admission: 12/11/18 Attend Phys: Felisha Natarajan MD Discharge: Date of : 53 Report #: [id number] 8. The patient has stage 2 renal failure. 9. Risk assessment tool, low for opioid use. 10. Functional assessment tool. 11. Recreational drug use. The patient denies use of recreational drugs. 12. Tobacco: The patient denies use of tobacco. 13. Alcohol: The patient denies use of alcoholic beverages. PHYSICAL EXAMINATION: GENERAL: The patient is a well-developed, well-nourished, somewhat obese white male, who appears his stated age. He is alert and oriented x 3. His affect is appropriate. Speech is fluent. HEENT: Normocephalic, atraumatic. Extraocular eye muscles intact. Sclerae nonicteric. Mucous membranes are moist. The patient's is present. HEART: Regular rate. S1, S2. ABDOMEN: Nontender, protuberant. LUNGS: Clear to auscultation without rhonchi or rales. MUSCULOSKELETAL: The patient has well-healed scar in his lumbar area. Upper extremity muscle strength is judged to be 5-/5 for the major muscle groups in the upper extremity. The patient has pain in the lower portion of his back with pain radiating down into both legs. IMPRESSION: 1. Exacerbation of lumbar radiculopathy, status post back surgery on 04/30/2018. 2. Headache. 3. Type 2 diabetes. 4. Gastroesophageal reflux. 5. Hypertension. 6. Insomnia. 7. Degenerative arthritis. 8. History of lumbar radiculopathy, status post surgery. RECOMMENDATIONS: We discussed treatment options with the patient. At this juncture, his pain is involving the low back area with pain radiating down into his legs. Risks and benefits of an epidural steroid injection were discussed. They include but not limited to infection, worsening of pain, no improvement in pain, nerve trauma and the patient elects to proceed. The patient is having pain that is radiating down in the L5-S1 dermatomal distribution at this juncture. He was taken to the procedure room. He was assisted in getting on the examination table. His back was sterilely prepped with a Betadine solution. Fluoroscopy using anterior, posterior as well as lateral view were implemented. The patient's back was infiltrated at the L5-S1 area midline using a 25-gauge needle and 0.25% bupivacaine. A 17-gauge Tuohy with loss of resistance technique was then advanced into the area of the epidural space. There was no CSF, heme, or paresthesia. Total of 80 mg Depo-Medrol, 40 mg triamcinolone and 2 mL of 0.25% bupivacaine was injected. [place] [address] PAIN MANAGEMENT CONSULTATION Name: DEBRA REHMAN Room: [facility]#: [id number] Admission: 12/11/18 Attend Phys: Felisha Natarajan MD Discharge: Date of : 53 Report #: [id number] well. There were no complications. Total of 27 seconds fluoroscopy time was used. Pain decreased to 1 at the time of discharge. He will follow up in the future as needed. The patient's medications were rewritten. He was provided with oxycodone 10/325 one p.o. every 5 hours p.r.n. pain, Cymbalta 30 mg 1 p.o. at bedtime as well as Cymbalta 60 mg 1 p.o. daily, gabapentin 600 mg 2 tablets p.o. t.i.d., total of 180 tablets. The patient will call us if he has any concerns. We would like to thank you for letting us participate in his care. We hope he continues to improve. <ELECTRONICALLY SIGNED> By: Felisha Natarajan MD 01/01/19 0132 2107 [id number]. Kit Natarajan MD /nt
== END | disposition home or self-care (01) ==
LOC: M.PC 05:10
DX: M54.16 Radiculopathy, lumbar region (principal); G89.29 Other chronic pain; I10 Essential (primary) hypertension; E11.65 Type 2 diabetes mellitus with hyperglycemia; J44.1 Chronic obstructive pulmonary disease with (acute) exacerbation; M19.90 Unspecified osteoarthritis, unspecified site; K21.9 Gastro-esophageal reflux disease without esophagitis; G47.00 Insomnia, unspecified; Z88.6 Allergy status to analgesic agent; Z88.8 Allergy status to other drugs, medicaments and biological substances; Z79.899 Other long term (current) drug therapy; Z98.890 Other specified postprocedural states; Z79.891 Long term (current) use of opiate analgesic; Z79.4 Long term (current) use of insulin

== ENCOUNTER 2019-02-09 19:07 | Observation (INO) | payer OTHER ==
[~2019-02-09] VITALS: Ht 175.3 cm; Wt 127.0 kg
[~2019-02-09 19:07] MED LIST changes: -AZITHROMYCIN 2250 MG PO; -CEFUROXIME250 MG PO; -FLEXERIL PO; -HUMULIN R100 UNIT/M SUBQ; -MUCINEX1200 MG PO; -MUCINEX600 MG PO; -NABUMETONE PO; -SIMVASTATIN40 MG PO; -VERAPAMIL ER120 MG PO; -XANAX 0.5 MG0.5 MG PO
[2019-02-09 19:14] VITALS: BP 135/57
[2019-02-09] MEDS ORDERED: VERAPAMIL ER120 MG PO (19:32)
[2019-02-09] MEDS ORDERED: FLEXERIL PO (19:32)
[2019-02-09] MEDS ORDERED: CELEXA40 MG PO (19:32)
[2019-02-09] MEDS ORDERED: XANAX 0.5 MG0.5 MG PO (19:33)
[2019-02-09] MEDS ORDERED: ALBUTEROL2.5 MG/31 INH (19:33)
[2019-02-09 20:04] LABS: ABSOLUTE BASOPHILS 0.1 thou/uL (0.0-0.2); ABSOLUTE EOSINOPHILS 0.4 thou/uL (0.0-0.7); ABSOLUTE NEUTROPHILS 7.8 thou/uL (1.6-8.1); BASOPHILS 1.1 %; EOSINOPHILS 3.6 %; HEMATOCRIT 29.9 % (42.0-52.0); LYMPHOCYTES 17.7 %; MCH 21.8 pg (26.0-34.0); MCHC 30.1 g/dL (28.0-37.0); MCV 72.3 fL (80.0-100.0); MONOCYTES 8.4 %; MPV 7.7 fl. (7.2-11.1); NUCLEATED RBCS 0 /100WBC; PLATELET COUNT* 354 thou/uL (150-400); POLYS 69.2 %; RBC 4.13 mil/uL (4.50-6.00); RDW-CV 18.3 % (10.5-14.5); WBC 11.3 thou/uL (4.0-11.0)
[2019-02-09 20:14] LABS: ANION GAP 10 mmol/L (7-16); APTT 24.6 Seconds (25.0-31.3); BUN 22 mg/dL (7-18); CALCIUM 8.3 mg/dL (8.5-10.1); CHLORIDE 103 mmol/L (98-107); CO2 29 mmol/L (21-32); CREATININE 1.5 mg/dL (0.6-1.3); GLUCOSE 93 mg/dL (70-99); POTASSIUM 4.5 mmol/L (3.5-5.1); PROTIME 9.9 Seconds (9.20-11.50); SODIUM 142 mmol/L (136-145)
[2019-02-09 20:24] LABS: ALBUMIN 2.8 g/dL (3.4-5.0); ALKALINE PHOSPHATASE 87 U/L (46-116); LIPASE 67 U/L (73-393); MAGNESIUM 2.5 mg/dL (1.8-2.4); NT-PRO BRAIN NAT PEPTIDE 59 pg/mL (<300); SGOT 27 U/L (15-37); SGPT 37 U/L (30-65); TOTAL BILIRUBIN 0.4 mg/dL (<0.1-1.0); TOTAL PROTEIN 7.6 g/dL (6.4-8.2); TROPONIN-I LEVEL <0.06 ng/mL (<0.06)
[2019-02-09 20:49] LABS: ANISOCYTOSIS 1+; HYPOCHROMASIA 2+; PLATELET ESTIMATE ADEQUATE; POLYCHROMASIA Occasional
[2019-02-09 20:50] LABS: MICROCYTES 1+
[2019-02-09 21:35] LABS: BE 1.7 mmol/L (-2 to +3); PCO2 45.7 mmHg (35.0-45.0); PO2 63.8 mmHg (75.0-100.0); pH 7.389 (7.340-7.450)
[2019-02-09 22:26] VITALS: BP 126/62
[2019-02-10] VITALS (7 sets, daily range): BP systolic 115–156; BP diastolic 66–71
--- NOTE | 2019-02-10 07:20 | NUR ---
CHANGE OF SHIFT, BEDSIDE REPORT GIVEN PATIENT SEEN AT BEDSIDE, IN BED RESTING ASSUMED PATIENT CARE
--- NOTE | 2019-02-10 07:35 | NUR ---
PT ADMITTED TO [place] [address] FROM ER. ALERT AND ORIENTED X4. HX OF ALZHEIMERS. ASSESSMENT DOCUMENTED. STANDBY ASSIST. LFA IV-SL. PT ORIENTED TO ROOM AND CALL LIGHT. HOURLY ROUNDINGS MADE. WILL CONTIUNE TO MONITOR.
--- NOTE | 2019-02-10 10:59 | EKG ---
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 : 1955 Requested By: Nate Ornates Order Number: [id number] MD: Yuri Pelletier Measurements Intervals [place] Rate: 90 P: 44 AK: 148 QRS: -45 QRSD: 98 T: 68 QT: 362 QTc: 443 Interpretive Statements Sinus rhythm Left anterior fascicular block Abnormal R-wave progression, late transition Baseline wander in lead(s) I,V1 Compared to ECG 10/13/2013 07:36:52 No significant changes Electronically Signed On 02-10-2019 10:58:53 CDT by Yuri Pelletier [email or web address] <ELECTRONICALLY SIGNED> By: Yuri Pelletier MD, FAC 02/10/19 1058 19 19 Yuri Pelletier MD, [facility] /EPI
[2019-02-10] MEDS ORDERED: AZITHROMYCIN 2250 MG PO (11:02)
[2019-02-10] MEDS ORDERED: CEFUROXIME250 MG PO ×2 (11:02→18:52)
[2019-02-10] MEDS ORDERED: MUCINEX600 MG PO (11:02)
[2019-02-10] MEDS ORDERED: PERCOCET 10-321 EACH PO (11:02)
--- NOTE | 2019-02-10 11:02 | NUR ---
Pt is A&O. Resides at home with his and adult son. drives and completes cleaning, son cooks. Pt requires assistance with bathing/grooming and ambulation in the home. Pt states that he either holds onto a family member or furniture walkers. Pt uses a scooter out in the community, states that his Dr is working on getting him a transport chair. Hx of HH post back surgery. No hx of SNF. Pt [facility] nurse visits monthly. Pt states that he is discharging to home today, no needs, will transport.
[2019-02-10] MEDS ORDERED: CYMBALTA30 MG PO (17:56)
[2019-02-10] MEDS ORDERED: CYMBALTA60 MG PO (17:56)
[2019-02-10] MEDS ORDERED: MUCINEX1200 MG PO (18:53)
[2019-02-10] MEDS ORDERED: MIRALAX17 GM PO (18:56)
[2019-02-10] MEDS ORDERED: NABUMETONE PO (18:59)
== END 2019-02-10 21:00 | disposition home or self-care (01) ==
LOC: M.ERS 19:07 → M.2W 21:20 → M.TBA-ER 21:20 → M.2W 21:20
PROVIDERS: Family Medicine; ADMIT Internal Medicine
DX: J44.1 Chronic obstructive pulmonary disease with (acute) exacerbation (principal); J18.0 Bronchopneumonia, unspecified organism; E11.21 Type 2 diabetes mellitus with diabetic nephropathy; E11.65 Type 2 diabetes mellitus with hyperglycemia; E11.22 Type 2 diabetes mellitus with diabetic chronic kidney disease; N18.3 Chronic kidney disease, stage 3 (moderate); E66.01 Morbid (severe) obesity due to excess calories; F03.90 Unspecified dementia, unspecified severity, without behavioral disturbance, psychotic disturbance, mood disturbance, and anxiety; K21.9 Gastro-esophageal reflux disease without esophagitis; M19.90 Unspecified osteoarthritis, unspecified site; F41.1 Generalized anxiety disorder; F19.10 Other psychoactive substance abuse, uncomplicated; G47.30 Sleep apnea, unspecified; M79.7 Fibromyalgia; F02.80 Dementia in other diseases classified elsewhere, unspecified severity, without behavioral disturbance, psychotic disturbance, mood disturbance, and anxiety; Z98.890 Other specified postprocedural states; Z90.49 Acquired absence of other specified parts of digestive tract; Z90.89 Acquired absence of other organs; Z96.643 Presence of artificial hip joint, bilateral; Z87.891 Personal history of nicotine dependence; Z91.048 Other nonmedicinal substance allergy status; Z88.5 Allergy status to narcotic agent; Z88.1 Allergy status to other antibiotic agents; Z79.899 Other long term (current) drug therapy

== ENCOUNTER → 2019-03-05 | Outpatient (CLI) | payer OTHER ==
[~2019-03-05] MED LIST changes: +AZITHROMYCIN 2250 MG PO; +CEFUROXIME250 MG PO; +FLEXERIL PO; +HUMULIN R100 UNIT/M SUBQ; +MUCINEX1200 MG PO; +MUCINEX600 MG PO; +NABUMETONE PO; +SIMVASTATIN40 MG PO; +VERAPAMIL ER120 MG PO; +XANAX 0.5 MG0.5 MG PO
--- NOTE | ~2019-03-05 | PAINCON ---
[facility] [address] [place] [address] PAIN MANAGEMENT CONSULTATION Name: DEBRA REHMAN [id number] Admission: 03/05/19 Attend Phys: Felisha Natarajan MD Discharge: Date of : 53 Report #: [id number] THIS REPORT FOR: //name// CC: Say Natarajan DATE OF SERVICE: 03/05/2019 CHIEF COMPLAINT: Low back pain. HISTORY: The patient is a 64-year-old gentleman who has been followed in the pain clinic because of problems with cervical pain as well as low back pain. He has undergone epidural steroid injections in the past. He has had lumbar injections. He is suffering from Alzheimer's type dementia. States that he is noticing a decline in his mental capacity. He is having some difficulty walking because of the worsening of his Alzheimer's problem. Balance is problematic. He is awaiting a wheelchair. He feels that his medications of gabapentin and duloxetine in conjunction with the oxycodone are beneficial and he would like to have them renewed. Continues to note some increased discomfort with activities of daily living, walking, sitting, bending. Feels his medications as well as can be helpful. ALLERGIES: MORPHINE, TETRACYCLINE, ADHESIVE TAPE. CURRENT MEDICATIONS: Alprazolam 0.25 mg b.i.d., Norvasc 5 mg, Colace 100 mg b.i.d., Aricept 5 mg 2 tablets daily, Cymbalta 30 mg t.i.d., Neurontin 1200 mg t.i.d., insulin 20 mg subcutaneous at bedtime, Synthroid 0.175 daily, Antivert for motion sickness 25 mg t.i.d., oxycodone 10/325 one p.o. q.i.d., Senokot for constipation, simvastatin 40 mg, trazodone 50 mg at bedtime. PAIN CLINIC ASSESSMENT/PQRS: 1. The patient has a history of osteoarthritis involving his low back with retrolisthesis of L1 and history of compression fracture at L2-L3. The patient has a history of cervical problems with cervical intervention in the past. He is not being treated for rheumatoid arthritis. 2. Height 5 feet 9 inches, weight 296 pounds, BMI is 43.7. 3. Vital Signs: Blood pressure 143/69, heart rate 89, respiratory rate 16, room air saturation 92%, temperature 98.1. 4. Pain intensity 5/10. 5. Fall history: The patient has not fallen since we saw him last, but has been losing his balance. 6. Blood thinner. The patient is not on a blood thinning medication. 7. Hypertension. The patient is being treated for hypertension. 8. Opioids greater than 6 weeks. The patient receives medications from one source the pain clinic. 9. Risk assessment tool, low [place] [address] PAIN MANAGEMENT CONSULTATION Name: DEBRA REHMAN Room: [facility]#: [id number] Admission: 03/05/19 Attend Phys: Felisha Natarajan MD Discharge: Date of : 53 Report #: [id number] 10. The patient has second stage renal failure. 11. Recreational drugs. The patient denies use of recreational drugs. 12. Tobacco: The patient denies use of tobacco. 13. Alcohol: The patient denies use of alcoholic beverages. PHYSICAL EXAMINATION: GENERAL: The patient is a well-developed, well-nourished white male, somewhat obese. He is accompanied by his son. He is alert and oriented x 3. Affect is appropriate. Speech is fluent. HEENT: Normocephalic, atraumatic. Extraocular eye muscles intact. Sclerae rhonchi. HEART: Regular rate. S1, S2. ABDOMEN: Nontender, protuberant. LUNGS: Clear to auscultation without rales or rhonchi. MUSCULOSKELETAL: The patient has a well-healed scar in the lumbar area. Upper extremity muscle strength judged to be 5-/5 for the major muscle groups of any upper extremity. The patient appears to have some difficulty with standing and with his balance. He walks with aid of his son arm in arm. Complains of pain that does radiate down into his legs. IMPRESSION: 1. History of lumbar radiculopathy, status post back surgery on 04/30/2018. 2. Headaches. 3. Diabetes type 2. 4. Gastroesophageal reflux. 5. Hypertension. 6. Insomnia. 7. Stage 2 renal failure. 8. Degenerative arthritis. 9. History of lumbar radicular pain status post surgery. RECOMMENDATIONS: We discussed treatment options with the patient and his son. At this juncture, he feels his medications are helpful. He is taking them as prescribed. They are not altering his sensorium. Feels that the gabapentin medication continues to be helpful as well as the Cymbalta. Takes a total of 90 mg per day. A script 30 mg Cymbalta and a 60 mg have been written for 3 months. The patient also will continue with the oxycodone 10/325 one p.o. q.i.d. as needed. A total of 3 months of this medication has been dispensed. The patient states he has taken the medication as prescribed. He is not having any problems with the medications. He is aware that opioid medications can be helpful, but can become less effective over a period of time secondary to development of tolerance. He keeps his medications in a guarded area. He is awaiting a [facility] [address] [facility] [place] [address] PAIN MANAGEMENT CONSULTATION Name: DEBRA REHMAN Room: [facility]#: [id number] Admission: 03/05/19 Attend Phys: Felisha Natarajan MD Discharge: Date of : 53 Report #: [id number] wheelchair. Hopefully, he will be able to get this and find that he is able to ambulate easier without loss of balance and possibility of trauma from fall. By: [id number]. Kit Natarajan MD /SARAH
== END ==
LOC: M.PC 05:17
DX: M54.16 Radiculopathy, lumbar region (principal); K21.9 Gastro-esophageal reflux disease without esophagitis; E11.22 Type 2 diabetes mellitus with diabetic chronic kidney disease; I12.9 Hypertensive chronic kidney disease with stage 1 through stage 4 chronic kidney disease, or unspecified chronic kidney disease; N18.2 Chronic kidney disease, stage 2 (mild); M19.90 Unspecified osteoarthritis, unspecified site; G47.00 Insomnia, unspecified; R51 Headache; Z79.899 Other long term (current) drug therapy; Z88.8 Allergy status to other drugs, medicaments and biological substances; Z91.048 Other nonmedicinal substance allergy status; Z88.6 Allergy status to analgesic agent

== ENCOUNTER → 2019-03-17 | Outpatient (CLI) | payer OTHER ==
--- NOTE | ~2019-03-17 | PAINCON ---
[address] [address] PAIN MANAGEMENT CONSULTATION Name: DEBRA REHMAN Room: [facility] JessCrystal#: [id number] Admission: 03/17/19 Attend Phys: Felisha Natarajan MD Discharge: Date of : 53 Report #: [id number] THIS REPORT FOR: //name// CC: Say Natarajan DATE OF SERVICE: 03/17/2019 CHIEF COMPLAINT: Right hip pain. HISTORY: The patient is a 64-year-old gentleman who has been followed in the pain clinic. He has a history of chronic pain. Has pain in the cervical area. He also has pain in the lumbar area. He has undergone epidural steroid injections and found those helpful. He has had surgery in the low back area. He returns today with pain involving his right hip. Pressure on the right side is problematic. The patient has difficulty lying on the right side because of increased pain and discomfort. He finds that his medications of gabapentin and Cymbalta continue to be helpful. Overall, he feels about 50% improved with their use. He has returned today because of the right hip pain as well as some low back pain with hopes of undergoing an injection in the right hip area. ALLERGIES: MORPHINE, TETRACYCLINE, ADHESIVE TAPE. CURRENT MEDICATIONS: Alprazolam 0.25 mg b.i.d., Norvasc 5 mg, Colace 100 mg b.i.d., Aricept 5 mg 2 tablets daily, Cymbalta 30 mg t.i.d., Neurontin 1200 mg t.i.d., insulin 20 mg subcutaneous at bedtime, Synthroid 0.175 mg daily, Antivert for motion sickness 25 mg t.i.d., oxycodone 10/325 one p.o. q.i.d., Senokot for constipation b.i.d., simvastatin 40 mg, trazodone 50 mg at bedtime. PAIN CLINIC ASSESSMENT AND PQRS: 1. The patient has some history of osteoarthritis in his low back. He has had some retrolisthesis of L1 and history of compression fracture at L2-L3. Has had cervical intervention. The patient is not being treated for rheumatoid arthritis. 2. Height 5 feet 9 inches, weight 296 pounds, BMI is 43.8. 3. Vital signs: Blood pressure 151/68, heart rate 90, respiratory rate 16, room air saturation 94%, temperature is 97.4. 4. Pain intensity 6/10. 5. Fall history: The patient has not fallen in the last 3 months. 6. Blood thinner. The patient is not on a blood thinning medication. 7. Hypertension. The patient is being treated for hypertension. 8. Opioids greater than 6 weeks. [facility]. 9. Risk assessment tool, low for opioid use. 10. The patient has stage 2 renal failure. 11. Recreational drugs. The patient [place] [address] PAIN MANAGEMENT CONSULTATION Name: DEBRA REHMAN [facility] [id number] Admission: 03/17/19 Attend Phys: Felisha Natarajan MD Discharge: Date of : 53 Report #: [id number] 12. Tobacco: The patient denies use of tobacco. 13. Alcohol: The patient denies use of alcoholic beverages. PHYSICAL EXAMINATION: GENERAL: The patient is a well-developed, well-nourished white male who is obese. He is alert and oriented x 3. His affect is appropriate. Speech is fluent. He is accompanied by his son. HEENT: Normocephalic, atraumatic. Extraocular eye muscles intact. Sclerae nonicteric. Mucous membranes are moist. HEART: Rate is regular. S1, S2. ABDOMEN: Protuberant. Bowel sounds present. LUNGS: Clear to auscultation without rhonchi or rales. MUSCULOSKELETAL: The patient has a well-healed scar in the lumbar area. Upper extremity muscle strength is judged to be 5/5 for the major muscle groups in the upper extremity. The patient has pain and discomfort in lower portion of his back with muscle strength judged to be 4+/5 for the major muscle groups in the lower extremities. The patient also has pain and discomfort on the right greater trochanteric area. Palpation in this area does reproduce his discomfort. Has some pain and discomfort on the left trochanteric area. IMPRESSION: 1. Right greater trochanteric bursitis. 2. Lumbar radiculopathy, status post back surgery on 04/30/2018. 3. Headaches. 4. Type 2 diabetes. 5. Gastroesophageal reflux. 6. Hypertension. 7. Insomnia. 8. Degenerative arthritis. 9. History of lumbar radiculopathy, status post surgery. RECOMMENDATIONS: We discussed treatment options with the patient. At this juncture, he is having pain and discomfort in the right greater trochanteric area. Palpation in this area does reproduce his discomfort. PROCEDURE NOTE: The patient was taken to the procedure area. He was then assisted in getting on the examination table. The patient was placed in the left lateral decubitus position. The right hip was in an upward position. The right greater trochanteric bursa area was identified. Fluoroscopy was used to identify the greater trochanteric area. A 25-gauge needle was then used to provide a skin wheal after it had been sterilely prepped with a chlorhexidine solution and allowed to dry on 2 occasions. A 20-gauge spinal needle was then advanced into the area of discomfort. Aspiration was negative. A total of 80 mg Depo-Medrol and 8 mL of 0.5% bupivacaine was injected. The patient tolerated the procedure well. There were no complications. He remained in the pain clinic for an appropriate amount of time. He will return as needed. About [address] [place] [address] PAIN MANAGEMENT CONSULTATION Name: DEBRA REHMAN Room: [facility]#: [id number] Admission: 03/17/19 Attend Phys: Felisha Natarajan MD Discharge: Date of : 53 Report #: [id number] seconds fluoroscopy time was used. We would like to thank you for letting us participate in his care. We hope he continues to improve. By: [id number]. Kit Natarajan MD /SARAH
== END | disposition home or self-care (01) ==
LOC: M.PC 05:12
DX: M70.61 Trochanteric bursitis, right hip (principal); G89.29 Other chronic pain; I10 Essential (primary) hypertension; E11.9 Type 2 diabetes mellitus without complications; K21.9 Gastro-esophageal reflux disease without esophagitis; M19.90 Unspecified osteoarthritis, unspecified site; G47.00 Insomnia, unspecified; Z98.890 Other specified postprocedural states; Z79.899 Other long term (current) drug therapy; Z88.8 Allergy status to other drugs, medicaments and biological substances; Z79.4 Long term (current) use of insulin; Z79.891 Long term (current) use of opiate analgesic

== ENCOUNTER → 2019-06-02 | Outpatient (CLI) | payer OTHER ==
--- NOTE | 2019-06-15 13:25 | PAINCON ---
[address] [address] PAIN MANAGEMENT CONSULTATION Name: DEBRA REHMAN [facility] [id number] Admission: 06/02/19 Attend Phys: Felisha Natarajan MD Discharge: Date of : 53 Report #: [id number] THIS REPORT FOR: //name// CC: Say Collins DATE OF SERVICE: 06/02/2019 CHIEF COMPLAINT: "I fell and broke my shoulder blade in four places." HISTORY: The patient is a 64-year-old gentleman who has been followed in the Pain Clinic. He has had pain in the lumbar area. He has undergone epidural steroid injections. These have been beneficial. He recently fell. He states that he has shattered his shoulder blade in 4 places. He did undergo surgery. He has been found to have an infection in the shoulder area. At this point, he is undergoing IV antibiotics on a regular basis to help control the pain. He does have a PICC line in place. He hopes that the infection subsides so he can have the PICC line removed and he could continue to heal with less instrumentation. He rates his pain as a 5/10 today. Continues to have some pain in his right hip and low back area. He has had no complications from the past injection in his hip. ALLERGIES: MORPHINE, TETRACYCLINE, ADHESIVE TAPE. CURRENT MEDICATIONS: Alprazolam 0.25 mg b.i.d., Norvasc 5 mg, Colace 100 mg, Aricept 5 mg 2 tablets daily, Cymbalta 30 mg t.i.d., Neurontin 1200 mg t.i.d., insulin 20 units subcutaneous at bedtime, Synthroid 0.175 mg, Antivert for motion sickness 25 mg t.i.d., oxycodone 10/325 one p.o. q.i.d., Senokot for constipation b.i.d., simvastatin 40 mg, trazodone 50 mg at bedtime, IV antibiotic for left shoulder pain and infection. PAIN CLINIC ASSESSMENT/PQRS: 1. The patient has a history of osteoarthritis in his low back. He has some retrolisthesis of L1-L2 and a history of compression fractures in the L2-L3. The patient has had surgical intervention. The patient is not being treated for rheumatoid arthritis. 2. Height 5 feet 9 inches, weight 296 pounds, BMI is 43.8. 3. Vital signs: Blood pressure 139/82, heart rate 85, respiratory rate 16, room air saturation 97.9. 4. Pain intensity 5/10. 5. Fall history. The patient did fall about a month ago. 6. Blood thinner. The patient is not on a blood thinning medication. 7. Hypertension. The patient is being treated for hypertension. 8. Opioids greater than 6 weeks. The patient receives medication from [facility] [place] [address] PAIN MANAGEMENT CONSULTATION Name: DEBRA REHMAN Room: [facility]#: [id number] Admission: 06/02/19 Attend Phys: Felisha Natarajan MD Discharge: Date of : 53 Report #: [id number] 9. Risk assessment tool, low for opioid use. 10. Stage 2 renal failure. 11. Recreational drugs. The patient denies use of recreational drugs. 12. Tobacco: The patient denies use of alcoholic beverages. 13. Tobacco: The patient denies use of tobacco. PHYSICAL EXAMINATION: GENERAL: The patient is a well-developed, well-nourished white male. Appears his stated age. He is obese. He is alert and oriented x 3. His affect is appropriate. Speech is fluent. He is accompanied by his son. HEENT: Normocephalic, atraumatic. Extraocular eye muscles intact. Sclerae nonicteric. Mucous membranes are moist. NECK: Without adenopathy or JVD. HEART: Regular rate. S1, S2. ABDOMEN: Nontender, protuberant. LUNGS: Clear to auscultation. MUSCULOSKELETAL: The patient has a well-healed scar in the lower part of his lumbar area. The patient has his left arm in a sling. Has a PICC in his right antecubital area. The patient does have some soreness in the right trochanteric area. IMPRESSION: 1. History of right greater trochanteric bursitis. 2. Left shoulder scapular fracture. 3. Infection, treated with IV antibiotics. 4. Type 2 diabetes. 5. Gastroesophageal reflux. 6. Hypertension. 7. Insomnia. 8. Degenerative arthritis. 9. History of lumbar radiculopathy, status post surgery. RECOMMENDATIONS: We discussed treatment options with the patient. At this juncture, we will continue with his current medical regimen. He feels that his medications of oxycodone, gabapentin and Cymbalta are helpful. They are helping to control his pain to about 85%. He has a broken left shoulder blade. He is status post surgery on 05/11/2019. Overall, things are healing up reasonably well. He will continue to follow up with his primary in that regard. The patient is being treated with IV antibiotics for an infection. Hopefully, he will find that this continues to improve and over a period of time, will be able to have the PICC line removed. He will continue with his opioid medications. He is aware that opioid medications can be helpful, but become less effective over time secondary to tolerance. He has taken the medication as prescribed. A script for oxycodone one p.o. t.i.d. have been written. The patient will also continue with oxygen at a somewhat increased rate because of his new injury. He will also continue with Cymbalta. A script for this medication [address] [place] [address] PAIN MANAGEMENT CONSULTATION Name: DEBRA REHMAN Room: [facility]#: [id number] Admission: 06/02/19 Attend Phys: Felisha Natarajan MD Discharge: Date of : 53 Report #: [id number] mg at bedtime will be provided. The patient will also take a 60 mg tablets for a total dosing of 90 mg daily. Feels that the gabapentin is helpful and we will continue with gabapentin 600 mg t.i.d. We would like to thank you for letting us participate in his care. We hope he continues to improve. <ELECTRONICALLY SIGNED> By: Felisha Natarajan MD 06/15/19 1325 [id number]. Kit Natarajan MD /nt
== END ==
LOC: M.PC 05:09
DX: S42.192D Fracture of other part of scapula, left shoulder, subsequent encounter for fracture with routine healing (principal); E11.9 Type 2 diabetes mellitus without complications; K21.9 Gastro-esophageal reflux disease without esophagitis; I10 Essential (primary) hypertension; M19.90 Unspecified osteoarthritis, unspecified site; Z79.899 Other long term (current) drug therapy; Z79.891 Long term (current) use of opiate analgesic; Z88.5 Allergy status to narcotic agent; Z88.8 Allergy status to other drugs, medicaments and biological substances; W19.XXXD Unspecified fall, subsequent encounter